=== PATIENT | female | born 1985 | race Caucasian/White ===

== ENCOUNTER 2024-08-17 15:50 | Emergency (ER) | payer OTHER ==
[~2024-08-17] VITALS: Ht 154.9 cm; Wt 54.5 kg
[2024-08-17 15:59] VITALS: O2SAT 100
[2024-08-17] MEDS: GENTAMICIN SULF 40MG/ML 2ML VIAL IM NR (18:15)
[2024-08-17] MEDS ORDERED: BENZ1LOZ73 MM (18:20)
[2024-08-17] MEDS: AZITHROMYCIN 500 MG TABLET PO ONE (18:49)
[2024-08-17 18:59] VITALS: BP 105/77; PULSE 83; RESP 14; TEMP 37.3; O2SAT 99
== END 2024-08-17 19:00 | disposition home or self-care (01) ==
LOC: ER 15:50
DX: Z20.2 Contact with and (suspected) exposure to infections with a predominantly sexual mode of transmission (principal); J02.9 Acute pharyngitis, unspecified; Q61.9 Cystic kidney disease, unspecified; N18.2 Chronic kidney disease, stage 2 (mild); Z88.0 Allergy status to penicillin; Z98.890 Other specified postprocedural states
CPT/HCPCS: 99283; 81025; 96372; J1580